=== PATIENT | female | born 1950 | race Caucasian/White ===

== ENCOUNTER 2020-03-08 01:22 | Outpatient (CLI) | payer MEDICARE, SELFPAY ==
[2020-03-08 18:36] LABS: SARS-CoV-2 RNA PCR Negative
== END 2020-03-08 01:23 | disposition home or self-care (01) ==
LOC: ANHCOVIDDT 01:23
PROVIDERS: PCP Family Medicine; Visit Provider Internal Medicine Gastroenterology
DX: Z01.812 Encounter for preprocedural laboratory examination (principal); Z20.828 Contact with and (suspected) exposure to other viral communicable diseases
CPT/HCPCS: 87635; C9803; U0003

== ENCOUNTER 2020-03-10 01:35 | Day surgery (SDC) | payer MEDICARE, SELFPAY ==
[2020-03-03 12:59] VITALS: BMI 32.8
[2020-03-10 06:31] VITALS: BP 132/71; PULSE 90; RESP 18; TEMP 36.5; O2SAT 98
[2020-03-10] MEDS: LACTATED RINGERS 1,000 ML 150 ML IV CONT (06:46)
[2020-03-10 06:52] LABS: Glucose Point of Care 127 (65-105)
--- NOTE | 2020-03-10 07:06 | WPDANESEPPF ---
Anes - Initial Pre Proc Eval Procedure: Operation Date: 03/10/20 07:30 Proposed Procedures p Screening Colonoscopy - Sky Banegas DO Date/Time: 03/10/20 07:06 Surgeon: Sky Banegas DO Pre Op Diagnosis: Neoplasm Screening Patient Data Age: 69 Gender: F Height: 5 ft 3 in Weight: 83.7 kg Last Vital Signs Temp 36.5 C 03/10/20 06:31 Pulse 90 03/10/20 06:31 Resp 18 03/10/20 06:31 BP 132/71 03/10/20 06:31 Pulse Ox 98 03/10/20 06:31 Allergies Allergy/AdvReac Type Severity Reaction Status Date / Time No Known Allergies Allergy Unknown Verified 03/10/20 06:19 Home Medications Medication Instructions Recorded Confirmed Type latanoprost 0.005 % eye drops 1 drop EACH EYE DAILY 06/04/19 03/10/20 History atorvastatin 20 mg tablet 20 mg PO DAILY 06/16/19 03/10/20 History bupropion HCl 150 mg 24 hr tablet, 150 mg PO QAM #90 tablet 12/18/19 03/10/20 Rx extended release lisinopril 20 mg tablet 20 mg PO DAILY #90 tablet 12/18/19 03/10/20 Rx canagliflozin [Invokana] 300 mg PO DAILY 03/03/20 03/10/20 History Laboratory Tests 03/10/20 06:49 POC Capillary Glucose 127 mg/dl H mg/dl (65-105) Patient hx anesthesia problems: none Family hx anesthesia problems: none PMFSH Past Medical History Medical History Colon cancer screening Essential (primary) hypertension 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 Neoplasm of skin Social History Social History Smoking status: Never smoker Alcohol intake: current Anes - Eval Final PreProcedure Day of Procedure 03/10/20 07:06 Patient weight: obese Heart: regular rate and rhythm Lungs: clear to auscultation Airway: Mallampati scale class II Neurological: alert and oriented Last oral intake: >/= 8 hours ASA classification: III Emergent: no Anesthetic plan: proceed Anesthesia type and monitoring: general GIVS and standard monitoring Informed Consent: The patient's anesthetic plan and its attendant risks and benefits were discussed with the patient/family/POA. Questions were solicited and answers provided to the satisfaction of the patient/family/POA.
--- NOTE | 2020-03-10 07:45 | PM.IMHP ---
H&P: HPI History of Present Illness Date/Time: 03/10/20 07:45 Chief complaint: Neoplasm Screening Narrative: Reason for visit colonoscopy. Very pleasant lady seen in consultation the request of the primary physician. Impression: Screening colonoscopy. IBS with constipation /Chronic idiopathic constipation. HTN. HLD. Diabetes mellitus. Glaucoma. Obesity. Anxiety/depression. Recommendation: Colonoscopy. History: This very pleasant lady's here for screening colonoscopy. Last colonoscopy was 10 years ago. Her GI review of systems remarkable for constipation. She will go every 1-2 days. The patient has complaints of a cough of whitish sputum. Physical examination: General: very pleasant patient in no acute distress. HEENT: Head was normocephalic sclerae is clear mouth without masses neck was supple. Heart: Rate rhythm regular without S3 or S4. Lungs: CTA. Abdomen: Soft with no guarding or rigidity. Bowel sounds were active. Neurologic: Cranial nerves 2 through 12 intact. No focal defects. No clonus. Musculoskeletal system: Revealed no joint tenderness or swelling no muscle atrophy. Extremities: Reveal no significant edema. Skin: Warm and dry with normal turgor. Mental status: intact. Patient is alert and oriented. 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 Neoplasm of skin Social History Social History Smoking status: Never smoker Alcohol intake: current Meds Home Medications and Allergies Home Medications Medication Instructions Recorded Confirmed Type latanoprost 0.005 % eye drops 1 drop EACH EYE DAILY 06/04/19 03/10/20 History atorvastatin 20 mg tablet 20 mg PO DAILY 06/16/19 03/10/20 History bupropion HCl 150 mg 24 hr tablet, 150 mg PO QAM #90 tablet 12/18/19 03/10/20 Rx extended release lisinopril 20 mg tablet 20 mg PO DAILY #90 tablet 12/18/19 03/10/20 Rx canagliflozin [Invokana] 300 mg PO DAILY 03/03/20 03/10/20 History Allergies Allergy/AdvReac Type Severity Reaction Status Date / Time No Known Allergies Allergy Unknown Verified 03/10/20 06:19 Vital Signs Vital Signs - 24 hr 03/10/20 06:31 Temperature 36.5 C Pulse Rate 90 Respiratory Rate 18 Blood Pressure 132/71 Pulse Oximetry 98
[2020-03-10 08:04] VITALS: BP 77/48; PULSE 77; RESP 18; O2SAT 98
[2020-03-10 08:14] VITALS: BP 86/60; PULSE 73; RESP 15; O2SAT 97
[2020-03-10 08:24] VITALS: BP 120/60; PULSE 73; RESP 15; O2SAT 97
== END 2020-03-10 08:40 | disposition home or self-care (01) ==
PROVIDERS: PCP Family Medicine; Visit Provider Internal Medicine Gastroenterology
PROC: 0DJD8ZZ Inspection of Lower Intestinal Tract, Via Natural or Artificial Opening Endoscopic (ICD-10-PCS; CPT 45378; principal; 2020-03-10 07:30)
DX: Z12.11 Encounter for screening for malignant neoplasm of colon (principal); D12.3 Benign neoplasm of transverse colon; D12.2 Benign neoplasm of ascending colon; K58.1 Irritable bowel syndrome with constipation; K57.30 Diverticulosis of large intestine without perforation or abscess without bleeding; I10 Essential (primary) hypertension; E66.9 Obesity, unspecified; Z68.32 Body mass index [BMI] 32.0-32.9, adult
CPT/HCPCS: 45385; 45380; 88305; J2001; J2704; J7120

== ENCOUNTER 2021-01-11 11:04 | Outpatient (CLI) | payer MEDICARE, SELFPAY ==
--- NOTE | ~2021-01-11 | XR_ITS ---
XR hand LT min 3V DATE: 01/11/2021 11:28 INDICATION: Swelling at the base of the thumb. No injury. TECHNIQUE: 3 views COMPARISON: None FINDINGS: There is diffuse osteopenia. There is mild osteoarthritis at the first carpometacarpal joint and multiple interphalangeal joints. No fracture or dislocation, periosteal reaction or bone destruction. IMPRESSION: Mild osteoarthritis Osteopenia Reviewed, dictated and finalized at location A.
--- NOTE | ~2021-01-11 | XR_ITS ---
XR knee LT 3V 01/11/2021 11:28 Indication: Left knee pain Procedure: 3 views left knee Comparison: No prior studies for comparison. Findings: There is mild-moderate osteoarthritis of the left knee. No fracture, subluxation or disloca tion. No significant joint effusion. Impression: 1: Mild-moderate tricompartment osteoarthritis of the left knee. Reviewed, dictated and finalized at location A. Impression: 1: Mild-moderate tricompartment osteoarthritis of the left knee.
== END 2021-01-11 11:05 | disposition home or self-care (01) ==
LOC: ANHIMG 11:09
PROVIDERS: PCP Family Medicine; Visit Provider Family Medicine
DX: M18.12 Unilateral primary osteoarthritis of first carpometacarpal joint, left hand (principal); M19.042 Primary osteoarthritis, left hand; M17.12 Unilateral primary osteoarthritis, left knee
CPT/HCPCS: 73130; 73562

== ENCOUNTER → 2021-04-29 00:19 | Outpatient (CLI) | payer MEDICARE, SELFPAY ==
[2021-04-29 19:34] LABS: SARS-CoV-2 RNA PCR Positive
== END ==
PROVIDERS: PCP Family Medicine; Visit Provider Nurse Practitioner Family
DX: U07.1 COVID-19 (principal)
CPT/HCPCS: C9803; U0003; U0005

== ENCOUNTER 2021-05-01 11:06 | Outpatient (RCR) | payer MEDICARE, SELFPAY ==
[2021-05-01] MEDS: diphenhydrAMINE HCl CAP 25 MG CAPSULE PO (14:37)
[2021-05-01] MEDS: FAMOTIDINE 20 MG TABLET PO (14:37)
[2021-05-01] MEDS: ACETAMINOPHEN 325 MG TABLET 650 MG PO (14:37)
[2021-05-01 14:53] VITALS: BP 132/57; PULSE 80; RESP 18; TEMP 36.9; O2SAT 98
[2021-05-01 15:46] VITALS: BP 119/56
--- NOTE | 2021-05-02 15:45 | PC.NURSE ---
Patient states she had no complications after covid infusion.
== END 2021-05-01 16:25 | disposition home or self-care (01) ==
LOC: AMCINF 11:06
PROVIDERS: PCP Family Medicine; Referring Provider Family Medicine; Visit Provider Internal Medicine Hematology & Oncology
DX: Z23 Encounter for immunization (principal); U07.1 COVID-19; I10 Essential (primary) hypertension; E11.9 Type 2 diabetes mellitus without complications
CPT/HCPCS: A9270; J7050; M0243; Q0244

== ENCOUNTER 2021-07-19 10:15 | Outpatient (RCR) | payer MEDICARE, SELFPAY ==
--- NOTE | 2021-06-28 15:06 | PTOPEVAL ---
PHYSICAL THERAPY EVALUATION AND PLAN OF CARE 06-28-21 Thank you for referring Ivelisse Azevedo to [facility] for the diagnosis of R knee pain and other chronic pain. She stated the knee was the most bothersome to her, so treatment was established for the R knee. She is scheduled to be seen for therapy? 2 x/week for 3 weeks. Please review, sign, date and return this plan of care ALEJANDRO. I agree with and certify that the following plan of care is medically necessary. Referring Physician Date Attending Provider: Ranjit Quiroga MD PT Outpatient Evaluation Document 06/28/21 14:00 AYDE (Rec: 06/28/21 15:06 AYDE [id number]) Past Medical History Source of Past Medical History Recalled from Previous Visit, Confirmed with Patient/Family Neurological History Hx Neurological Disorders No Significant History Cardiovascular History Hx Hypercholesterolemia Yes: meds Hx Hypertension Yes: meds Respiratory History Hx COVID-19 Yes: Mar 2021, recovered in ~ 2-3 wks Gastrointestinal History Hx Cholecystectomy Yes Hx Diverticulitis Yes: partial colectomy, 12 removed Genitourinary History Hx Genitourinary Disorders No Significant History Musculoskeletal History Hx Other Musculoskeletal Disorders Yes: R and L shoulder pain, L knee pain; L thumb pain Hematological History Hx Hematological Disorders No Significant History Endocrine History Hx Diabetes Yes: oral meds HEENT History Hx Cataracts Yes: bilateral surgery Hx Glaucoma Yes: bilateral- use eye drops Integumentary History Hx Skin Disorders No Significant History Reproductive History Hx Reproductive Disorders No Significant History Psychosocial History Hx Depression Yes Pain History History of Any Previous or Ongoing No Significant History Instance of Pain Anesthesia History Hx Anesthesia Reactions No Significant History Evaluation Information Problem Diagnosis L knee pain, other chronic pain Onset about one year Subjective Information no trauma or injury to L knee, Query Text:As Reported By Patient/ gradual increase in pain; Family has seen Dr Carnes for her knee pain and had an injection Jun 06- helped a tiny bit ; return to Dr Carnes in July; Prior Level of Function Activity Level (Last 3 Months) Occupation retired Activity of Daily Living Ability Independent Indoor/Home Mobility Independent Community Mobility Independent Stairs Ability I
--- NOTE | 2021-07-19 10:57 | PTOPEVAL ---
PHYSICAL THERAPY DISCHARGE 07-19-21 Refer to the clinical summary below for her status today, compared to the initial evaluation. The goals were partially achieved. She will be discharged at this time, and is to continue with her home exercises. Thank you for referring Ivelisse Azevedo to [facility].? Please review, sign, date and return this discharge report ALEJANDRO. I agree with and certify that the following plan of care is medically necessary. Referring Physician Date Attending Provider: Ranjit Quiroga MD Document 07/19/21 10:20 AYDE (Rec: 07/19/21 10:57 AYDE [id number]) Assessment Status Discharge Subjective Information Ivelisse reports: exercises have Query Text:As Reported By Patient/ helped me get stronger; knee Family is swollen all the time, but more at some times than others ; doing home exercises without any problems; Pain Assessment Timing of Pain Assessment Timing of Pain Assessment Assessment Pain Scale Pain Scale Used Numeric (1 - 10) Self Report Pain Assessment Left Knee(s) Reported Pain Level 1 Pain Frequency Chronic Other Pain Description popliteal crease, medial knee/ joint line Lowest Pain Intensity 0 Greatest Pain Intensity 8 Pain Aggravating Factors Walking,Weight Bearing/ Standing Other Pain Aggravating Factors report walk/stand, activity tolerance 30 min to 1 hour; Additional Pain Comments with sleeping,sleep through night most nights-past week, awaken 3x due pain Pain Score Pain Score 1: Self Report Interventions Used Interventions Used By Clinicians Exercise Pain Relief Interventions Used By Ice,Medication Patient Other Alleviating Interventions aleve PRN Lower Extremity Range of Motion General Lower Extremity Range of Motion Gross Lower Extremity Range of Motion in sitting, L knee extension ( Comments -3') Lower Extremity Muscle Strength Testing General Lower Extremity Strength Gross Lower Extremity Strength functional strength testing: L LE supine SLR 16 reps; bridge 22 reps side lying hip abduction 10-15 ' x 15 reps prone hip extension 20 reps single leg standing 6 sec total- steady initial 3-4 sec, then unsteady Palpation Assessment Palpation Palpation tenderness reported with
== END 2021-07-19 14:35 | disposition home or self-care (01) ==
LOC: ANHPT 10:15
PROVIDERS: PCP Family Medicine; Visit Provider Family Medicine
DX: M25.562 Pain in left knee (principal); G89.29 Other chronic pain
CPT/HCPCS: 97110; 97140; 97161

== ENCOUNTER → 2022-06-04 15:10 | Outpatient (CLI) | payer MEDICARE, SELFPAY ==
--- NOTE | ~2022-06-04 | XR_ITS ---
EXAMINATION: XR lumbar spine min 4V DATE: 06/04/2022 15:25 INDICATION: Low back pain TECHNIQUE: Anteroposterior, lateral, and bilateral oblique views of the lumbar spine, and cone-down l ateral view of the lumbosacral junction were obtained. COMPARISON: None. FINDINGS: There are 5 mm of anterolisthesis of L4 on L5. The vertebral body heights are maintained. T here is no fracture. There is severe facet osteoarthritis of the lower lumbar spine. Small degenerati ve osteophytes project from the anterior endplates of multiple vertebral bodies. Calcified atheroscle rosis is noted. IMPRESSION: 1. Moderate to severe lumbar spondylosis without acute findings. Reviewed, dictated and finalized at location B. [facility] [employer]
== END ==
PROVIDERS: PCP Family Medicine; Visit Provider Family Medicine
DX: M54.41 Lumbago with sciatica, right side (principal); M47.896 Other spondylosis, lumbar region
CPT/HCPCS: 72110

== ENCOUNTER 2022-09-27 11:00 | Outpatient (RCR) | payer MEDICARE, SELFPAY ==
--- NOTE | 2022-07-04 15:21 | PTOPEVAL1 ---
Assessment and note entered by Shaquille Bee, PT, DPT Evaluation Information Assessment Status Evaluation Diagnosis gonzález leg pain, L knee pain Onset 1 month Subjective Information Pt states she was recently told that she needs a L knee replacement. She states her legs have started to hurt more and more recently. She states her pain moves around and she cannot find a trigger for her pain. She states she is having an increased difficulty walking and doing stairs within the last month. Pt reports gonzález pain down the entire length of her legs. She reports her pain a 2/10 at rest, and a 6/10 during walking. She states she gets many varieties of pain including burning, aching, stabbing, or cramping pains. Reported Pain Level Pain Score 2,1: Self Report Assessment PT Clinical Summary Ivelisse presents to therapy today for her initial evaluation with a diagnosis of chronic pain and R sided sciatica. Today she demonstrates decreased muscular flexibility of her gonzález hip flexors R>L. She has increased soft tissue density and very increased tenderness to palpation along her ITB bilaterally. She also demonstrates mild hip weakness on the L and moderate weakness on the R. She ambulates with a decreased gait speed and an antalgic pattern. Skilled physial therapy services are indicated to address the deficits noted above, for pain management, and to return to baseline function. Plan of Care Interventions Electrical Stimulation,Gait Training,Hot Pack/Cold Pack,Manual Therapy,Neuro Re-education,Patient/ Caregiver Educati,Therapeutic Activities, Therapeutic Exercise,Ultrasound PT Services Indicated Yes Treatment Frequency and 2x/wk for 4 wks Duration These treatments will address the objective and functional deficits as defined above. The patient will be advanced safely and appropriately in order for the patient to progress towards his/her prior level of function. Additional exercises will be introduced and as well as a comprehensive home exercise program upon discharge, if needed, ?to ensure carryover of functional gains achieved in the clinic. This treatment plan has been reviewed and agreement upon by the patient.
--- NOTE | 2022-08-02 15:19 | PTOPPROG ---
Assessment and note entered by Shaquille Bee, PT, DPT Evaluation Information Assessment Status Progress Diagnosis gonzález leg pain, L knee pain Onset 1 month Subjective Information Pt states she knows she has improved. She still reports frequent pain with her R leg being the biggest issue. She reports still getting intermittent pains in her R leg. Pt states she sat on bleacher yesterday night and is pretty sore today from it. She reports 9/10 at her worst pain in the last week. Assessment PT Clinical Summary Ivelisse presents to therapy today for her progress report following 8 visits of skilled therapy to treat her gonzález lower extremity pain. Today she continues to demonstrates gonzález hip strength that is limited by pain. She continues to ambulate with an antalgic gait pattern and a decreased gait speed. Subjectively her intensity and frequency of her pain have decreased. Continuation of skilled physical therapy services are indicated to continue progressing towards therapy goals, to manage pain, and to improve functional mobility. Plan of Care Interventions Electrical Stimulation,Gait Training,Hot Pack/Cold Pack,Manual Therapy,Neuro Re-education,Patient/ Caregiver Educati,Therapeutic Activities, Therapeutic Exercise,Ultrasound PT Services Indicated Yes Treatment Frequency and 2x/wk for 4 wks Duration These treatments will address the objective and functional deficits as defined above. The patient will be advanced safely and appropriately in order for the patient to progress towards his/her prior level of function. Additional exercises will be introduced and as well as a comprehensive home exercise program upon discharge, if needed, ?to ensure carryover of functional gains achieved in the clinic. This treatment plan has been reviewed and agreement upon by the patient.
--- NOTE | 2022-08-29 14:22 | PTOPPROG ---
Assessment and note entered by Shaquille Bee, PT, DPT Evaluation Information Assessment Status Discharge Diagnosis gonzález leg pain, L knee pain Onset 1 month Subjective Information Pt states she is doing much better than when she started. She states she is seeing constant improvements but still has some tough days. Pt reports 50% improvement in overall symptoms and states she still has some concerns that she will be unable to ambulate. Assessment PT Clinical Summary Ivelisse presents to therapy today for her progress report following 16 visits of skilled therapy to treat her gonzález hip and thigh pain. She reports good compliance with her HEP and is making fair progress towards her goals. Today she demonstrates improvements in her functional strength and decreased reports of pain. She continues to have increased tenderness to palpation along her ITBs gonzález with increases gritty tissue felt. She continues to have a strong lateral lean during ambulation with a R sided antalgic gait pattern. Continuation of skilled physical therapy services are indicated to address the remaining deficits, to improve strength, and to improve functional mobiltiy. Plan of Care Interventions Electrical Stimulation,Gait Training,Hot Pack/Cold Pack,Manual Therapy,Neuro Re-education,Patient/ Caregiver Educati,Therapeutic Activities, Therapeutic Exercise,Ultrasound PT Services Indicated Yes Treatment Frequency and 2x/wk for 4 wks Duration These treatments will address the objective and functional deficits as defined above. The patient will be advanced safely and appropriately in order for the patient to progress towards his/her prior level of function. Additional exercises will be introduced and as well as a comprehensive home exercise program upon discharge, if needed, ?to ensure carryover of functional gains achieved in the clinic. This treatment plan has been reviewed and agreement upon by the patient.
--- NOTE | 2022-09-20 09:12 | PCPTNOTE ---
Patient called to cancel this date due to illness.
--- NOTE | 2022-09-25 08:02 | PCPTNOTE ---
Patient called to cancel due to illness.
--- NOTE | 2022-09-27 11:47 | PTOPDC ---
Assessment and note entered by Shaquille Bee, PT, DPT Evaluation Information Assessment Status Discharge Diagnosis gonzález leg pain, L knee pain Onset 1 month Subjective Information Pt states her legs overall have improved a lot but have been the same for the last 1-2 weeks. Pt states her overall pain is better but she is still having difficulty going up and down the stairs. Pt states she was able to complete assessments today without her hip giving out, she states she does not remember the last time that happened. Pt reports 60-70% improvement in overall symptoms. Reported Pain Level Pain Score 0,1: Self Report Assessment PT Clinical Summary Ivelisse presents to therapy today for her progress report following 22 visits of skilled therapy to treat his gonzález leg pain. Today she demonstrates continued improvement of her ROM, pain, and strength of her BLEs. She ambulates with an improved gait speed, decreased gait deviations, and decreased LOBs during ambulation. She is progressing well towards her therapy goals and will be discharged at this time to continue her HEP IND. She was instructed to follow up with referring provider if her symptoms worsen. Plan of Care PT Services Indicated No Treatment Frequency and to be discharged Duration
== END 2022-09-27 13:01 | disposition home or self-care (01) ==
LOC: ANHGOSHPT 11:00
PROVIDERS: PCP Family Medicine; Visit Provider Family Medicine
DX: M54.41 Lumbago with sciatica, right side (principal); G89.29 Other chronic pain
CPT/HCPCS: 97110; 97112; 97140; 97161; 97530

== ENCOUNTER → 2022-12-19 09:26 | Outpatient (CLI) | payer MEDICARE, SELFPAY ==
--- NOTE | ~2022-12-19 | MR_ITS ---
MRI of the lumbar spine Clinical History: Back pain Technique: Axial T2-weighted images, and sagittal T1-weighted, T2-weighted, and T2 fat-sat images wer e acquired. Findings: There is no fracture of the lumbar spine. 4 mm anterolisthesis of L4 over L5 noted. No susp icious bone marrow signal abnormality seen. At L1-L2, there is no significant disc bulge or herniation. There is mild facet arthropathy. No spina l canal stenosis or neural foraminal narrowing. At L2-L3, there is diffuse disc bulge and mild facet arthropathy. No madi central canal stenosis. Th ere is minimal left neural foraminal narrowing. Right neural foramen preserved. At L3-L4, there is diffuse disc bulge with moderate to advanced facet arthropathy. No central canal s tenosis. There is severe left neural foraminal narrowing and mild right neural foraminal narrowing. At L4-L5, disc bulge and advanced facet arthropathy are present. No central canal stenosis or signifi cant neural foraminal narrowing. At L5-S1, there is advanced facet arthropathy. No disc bulge or herniation. No spinal canal stenosis. There is mild left neural foraminal narrowing. Right neural foramen preserved. Paravertebral soft tissues are unremarkable. Impression: Mild degenerative spondylosis overall, worst at L3-L4 where there is severe left neural foraminal brenden rowing and mild right neural foraminal narrowing. 4 mm anterolisthesis of L4 over L5. Reviewed, dictated and finalized at [facility]. Impression: Mild degenerative spondylosis overall, worst at L3-L4 where there is severe lef t neural foraminal narrowing and mild right neural foraminal narrowing. 4 mm anterolisthesis of L4 over L5.
== END ==
PROVIDERS: PCP Family Medicine; Visit Provider Family Medicine
DX: M54.41 Lumbago with sciatica, right side (principal); G89.29 Other chronic pain; M47.896 Other spondylosis, lumbar region
CPT/HCPCS: 72148

== ENCOUNTER 2023-09-26 13:30 | Outpatient (RCR) | payer MEDICARE, SELFPAY ==
--- NOTE | 2023-08-29 13:32 | OPREHPOC ---
Outpatient Therapy Plan of Care This is a Multidisciplinary Plan of Care that may contain components documented by all disciplines (PT, OT, and ST.) PT Problem 1 PT Problem #1 Knowledge Deficit PT Goal 1 Goal Pt to be IND with issued HEP Target Visit 8 PT Problem 2 PT Problem #2 Pain PT Goal 1 Goal Pt to report pain no greater than 3/10 in the last week. Target Visit 8 PT Goal 2 Goal Pt to report 75% improvement in overall symptoms. Target Visit 8 PT Problem 3 PT Problem #3 Impaired Range of Motion PT Goal 1 Goal Pt to improve active shoulder flexion ROM to 140 deg Target Visit 8 PT Goal 2 Goal Pt to improve active shoulder abduction to 120 deg Target Visit 8 PT Problem 4 PT Problem #4 Impaired Functional Mobil PT Goal 1 Goal Pt to be able to lift 5lb overhead without limitations Target Visit 8 PT Goal 2 Goal Pt to improve UEFI score from 49/80 to 65/80 Target Visit 8
--- NOTE | 2023-08-29 13:32 | PTOPEVAL1 ---
Assessment and note entered by Shaquille Bee, PT, DPT Evaluation Information Assessment Status Evaluation Diagnosis R shoulder pain Subjective Information Pt states her shoulder has bothered her on and off for many years. She states a couple of months ago she was scooting backwards on the couch and felt some popping her shoulder. She states since then her pain has increased significantly. Per her reports she has a massive RTC tear. She was given a cortisone injection that has helped with her pain. She states any activity will increase her pain after a minute or so. Reported Pain Level Pain Score 0: Self Report Assessment PT Clinical Summary Ivelisse presents to therapy today for her initial evaluation with a diagnosis of R shoulder pain, suspected of a R RTC tear. Today she demonstrates decreased active and passive shoulder ROM on the R when compared to the L. ROM is limited by both pain and weakness. She demonstrates moderate strength deficits gonzález R>L resulting in decreased functional mobility. Skilled therapy services are indicated to address the deficits noted above, to manage pain, to improve mobility, and to return to PLOF. Plan of Care Interventions Electrical Stimulation,Hot Pack/Cold Pack,Manual Therapy,Neuro Re-education,Patient/Caregiver Educati,Therapeutic Activities,Therapeutic Exercise PT Services Indicated Yes Treatment Frequency and 2x/wk for 4 weeks Duration These treatments will address the objective and functional deficits as defined above. The patient will be advanced safely and appropriately in order for the patient to progress towards his/her prior level of function. Additional exercises will be introduced and as well as a comprehensive home exercise program upon discharge, if needed, ?to ensure carryover of functional gains achieved in the clinic. This treatment plan has been reviewed and agreement upon by the patient.
--- NOTE | 2023-09-26 17:14 | PTOPDC ---
Assessment and note entered by Shaquille Bee, PT, DPT Evaluation Information Assessment Status Discharge Diagnosis R shoulder pain Subjective Information Pt states she feels like her strength has improved , and getting an injection helped with her day to day pain. She states her sleep has improved a lot since the injection. She reports still having trouble when moving things with weight or anything overhead. Reported Pain Level Pain Score 0: Self Report Assessment PT Clinical Summary Ivelisse presents to therapy today for her progress report following 9 visits of skilled therapy to treat her diagnosis of R shoulder pain, suspected of a R RTC tear. Today she demonstrates minimal changes in her active motion, strength, and pain reports since starting therapy. Pt reports an improvement in her pain, but only since getting an injection. It was decided that pt will continue her HEP IND and will follow up with ortho once she is ready to progress with the next option in her POC. Plan of Care PT Services Indicated No
== END 2023-09-27 10:08 | disposition home or self-care (01) ==
LOC: ANHGOSHPT 13:30
PROVIDERS: PCP Family Medicine
DX: S46.011D Strain of muscle(s) and tendon(s) of the rotator cuff of right shoulder, subsequent encounter (principal)
CPT/HCPCS: 97110; 97140; 97161; 97530

== ENCOUNTER 2023-11-12 17:56 | Outpatient (CLI) | payer MEDICARE, SELFPAY ==
--- NOTE | ~2023-11-12 | XR_ITS ---
EXAMINATION: XR chest 2V DATE: 11/12/2023 18:07 INDICATION: Cough. Shortness of breath. TECHNIQUE: Frontal and lateral views of the chest were obtained. COMPARISON: None. FINDINGS: There is no pneumonia, pleural effusion, or pneumothorax. The heart size is normal. Surgica l clips in the right upper quadrant are likely from cholecystectomy. IMPRESSION: 1. No acute cardiopulmonary disease. Reviewed, dictated and finalized at location E.
== END 2023-11-12 17:57 | disposition home or self-care (01) ==
LOC: ANHIMG 17:58
PROVIDERS: PCP Family Medicine; Visit Provider Family Medicine
DX: R05.9 Cough, unspecified (principal); R06.02 Shortness of breath; I10 Essential (primary) hypertension; E11.9 Type 2 diabetes mellitus without complications
CPT/HCPCS: 71046

== ENCOUNTER 2024-03-25 10:52 | Outpatient (RCR) | payer MEDICARE, SELFPAY ==
--- NOTE | 2024-03-25 11:53 | PTOPEVDC ---
Assessment and note entered by Shaquille Bee, PT, DPT Thank you for referring Ivelisse Azevedo to [facility].? An evaluation has been completed. No further treatment is needed. Evaluation Information Assessment Status Evaluation Diagnosis L TKA pre op ICD-10 Condition Codes (PT) Pain in left knee M25.562 Subjective Information Pt states she is going to have a L TKA on 06/08/24 . She is here today for pre-op strengthening and to issue an HEP. Reported Pain Level Pain Score 2: Self Report Assessment PT Clinical Summary Ivelisse presents to therapy today to be issued and HEP prior to a L TKA. Today she demonstrated exercises and was issued and HEP with focus on quad and lateral hip strength. Education was given regarding recovery timeline and post op expectations regarding therapy. She demonstrates IND with her HEP and will complete these IND up until her surgery. Plan of Care PT Services Indicated No Treatment Frequency and d/c to HEP Duration
== END 2024-03-25 13:43 | disposition home or self-care (01) ==
LOC: ANHGOSHPT 10:52
PROVIDERS: PCP Family Medicine
DX: M17.12 Unilateral primary osteoarthritis, left knee (principal)
CPT/HCPCS: 97110; 97161

== ENCOUNTER 2024-09-17 14:45 | Outpatient (RCR) | payer MEDICARE, SELFPAY ==
--- NOTE | 2024-07-15 14:24 | OPREHPOC ---
Outpatient Therapy Plan of Care This is a Multidisciplinary Plan of Care that may contain components documented by all disciplines (PT, OT, and ST.) PT Problem 1 PT Problem #1 Knowledge Deficit PT Goal 1 Goal / Goal Update Pt to be IND with issued HEP PT Problem 2 PT Problem #2 Pain PT Goal 1 Goal / Goal Update 1. Pt to report knee pain no greater than 3/10 in the last week. PT Problem 3 PT Problem #3 Impaired Strength PT Goal 1 Goal / Goal Update 1. Pt to be able to lift and carry 10lb from ground level 2. Pt to improve 5xSTS time from 30s to 20s without UE support Target Visit 10 PT Problem 4 PT Problem #4 Impaired Range of Motion PT Goal 1 Goal / Goal Update 1. Pt to improve active knee flexion ROM to 110 deg to improve functional squatting
--- NOTE | 2024-07-15 14:24 | PTOPEVAL1 ---
Assessment and note entered by Shaquille Bee, PT, DPT Evaluation Information Assessment Status Evaluation Diagnosis L TKA ICD-10 Condition Codes (PT) Pain in left knee M25.562,Encounter for other orthopedic aftercare Z47.89,Aftercare following joint replacement surgery Z47.1 Onset 06/08/24 Subjective Information Pt states she had a L TKA on 06/08/24. She states pain has been a real challenge up until now, now she is able to just take Tylenol. She is walking without a device. She has been a stationary bike while at home and done very few exercises. She states sleep has been really hard d/t pain. She would like to get back to riding her stationary bike and to be able to walk for 20 min walk. Reported Pain Level Pain Score 3: Self Report Assessment PT Clinical Summary Pt presents to therapy today for initial evaluation following a L TKA on 06/08/24. Today she demonstrates s/s consistent with her diagnosis . There is swelling present. She demonstrates strength deficits as well as significant active and passive knee flexion ROM, passively only getting to 90 degs. She ambulates with a decreased speed and has a L sided antalgic pattern. Skilled therapy services are indicated to address the deficits noted above, to manage pain, and to return to prior level of function. Plan of Care Interventions Electrical Stimulation,Gait Training,Hot Pack/Cold Pack,Intermittent Compression Pump,Manual Therapy ,Neuro Re-education,Patient/Caregiver Education, Therapeutic Activities,Therapeutic Exercise PT Services Indicated Yes Treatment Frequency and 2x/wk for 10 visits Duration These treatments will address the objective and functional deficits as defined above. The patient will be advanced safely and appropriately in order for the patient to progress towards his/her prior level of function. Additional exercises will be introduced and as well as a comprehensive home exercise program upon discharge, if needed, ?to ensure carryover of functional gains achieved in the clinic. This treatment plan has been reviewed and agreement upon by the patient.
--- NOTE | 2024-08-07 10:59 | PCPTNOTE ---
Patient called to cancel therapy due to weather.
--- NOTE | 2024-08-18 15:27 | PTOPPROG ---
Assessment and note entered by Shaquille Bee, PT, DPT Evaluation Information Assessment Status Progress Diagnosis L TKA ICD-10 Condition Codes (PT) Pain in left knee M25.562,Encounter for other orthopedic aftercare Z47.89,Aftercare following joint replacement surgery Z47.1 Onset 06/08/24 Subjective Information Pt states she is doing better, but is still having a hard time sleeping, walking long distances, and doing various tasks around her home. She states she feels about 40% back to her baseline. Pt states she is seeing slight improvements at home. Assessment PT Clinical Summary Pt presents to therapy today for progress report following a L TKA on 06/08/24. Today she demonstrates improve gait speed, active and passive knee flexion ROM, and improved strength. Each of these values are still decreased from her baseline. Continuation of skilled therapy services are indicated to continue progressing towards her therapy goal, to manage pain, and to return to prior level of function. Plan of Care Interventions Electrical Stimulation,Gait Training,Hot Pack/Cold Pack,Intermittent Compression Pump,Manual Therapy ,Neuro Re-education,Patient/Caregiver Education, Therapeutic Activities,Therapeutic Exercise PT Services Indicated Yes Treatment Frequency and 2x/wk for 10 visits Duration These treatments will address the objective and functional deficits as defined above. The patient will be advanced safely and appropriately in order for the patient to progress towards his/her prior level of function. Additional exercises will be introduced and as well as a comprehensive home exercise program upon discharge, if needed, ?to ensure carryover of functional gains achieved in the clinic. This treatment plan has been reviewed and agreement upon by the patient.
--- NOTE | 2024-08-18 15:27 | OPREHPOC ---
Outpatient Therapy Plan of Care This is a Multidisciplinary Plan of Care that may contain components documented by all disciplines (PT, OT, and ST.) PT Problem 1 PT Problem #1 Knowledge Deficit PT Goal 1 Goal / Goal Update Pt to be IND with issued HEP Progress Met PT Problem 2 PT Problem #2 Pain PT Goal 1 Goal / Goal Update 1. Pt to report knee pain no greater than 3/10 in the last week. 08/18/24: progressing to 7/10 PT Problem 3 PT Problem #3 Impaired Strength PT Goal 1 Goal / Goal Update 1. Pt to be able to lift and carry 10lb from ground level 2. Pt to improve 5xSTS time from 30s to 20s without UE support 08/18/24: 1. not met 2. met, 19s Target Visit 10 PT Problem 4 PT Problem #4 Impaired Range of Motion PT Goal 1 Goal / Goal Update 1. Pt to improve active knee flexion ROM to 110 deg to improve functional squatting 08/18/24: 1. progressing to 100 deg
--- NOTE | 2024-09-17 15:34 | OPREHPOC ---
Outpatient Therapy Plan of Care This is a Multidisciplinary Plan of Care that may contain components documented by all disciplines (PT, OT, and ST.) PT Problem 1 PT Problem #1 Knowledge Deficit PT Goal 1 Goal / Goal Update Pt to be IND with issued HEP Progress Met PT Problem 2 PT Problem #2 Pain PT Goal 1 Goal / Goal Update 1. Pt to report knee pain no greater than 3/10 in the last week. 08/18/24: progressing to 7/10 09/17/24: met PT Problem 3 PT Problem #3 Impaired Strength PT Goal 1 Goal / Goal Update 1. Pt to be able to lift and carry 10lb from ground level 2. Pt to improve 5xSTS time from 30s to 20s without UE support 08/18/24: 1. not met 2. met, 19s 09/17/24: 1-2. met Target Visit 10 PT Problem 4 PT Problem #4 Impaired Range of Motion PT Goal 1 Goal / Goal Update 1. Pt to improve active knee flexion ROM to 110 deg to improve functional squatting 08/18/24: 1. progressing to 100 deg 09/17/24: 1. met
--- NOTE | 2024-09-17 15:34 | PTOPDC ---
Assessment and note entered by Shaquille Bee, PT, DPT Evaluation Information Assessment Status Discharge Diagnosis L TKA ICD-10 Condition Codes (PT) Pain in left knee M25.562,Encounter for other orthopedic aftercare Z47.89,Aftercare following joint replacement surgery Z47.1 Onset 06/08/24 Subjective Information Pt states it feels like her knee is doing significantly better. She states she still gets aches and pains that seems really random. States she is really pleased with her recovery. Reported Pain Level Pain Score 1: Self Report Assessment PT Clinical Summary Pt presents to therapy today for progress report following 15 visits of therapy following a L TKA on 06/08/24. Today she demonstrates improve gait speed, active and passive knee flexion ROM, and improved strength. She has met all of her therapy goals and no longer requires skilled services. She will be discharged at this time.
== END 2024-09-18 09:19 | disposition home or self-care (01) ==
LOC: ANHGOSHPT 14:45
PROVIDERS: PCP Family Medicine
DX: Z47.1 Aftercare following joint replacement surgery (principal); Z96.652 Presence of left artificial knee joint
CPT/HCPCS: 97014; 97016; 97110; 97140; 97161; 97530; G0283